=== PATIENT | male | born 1940 ===

== ENCOUNTER 2017-11-29 09:14 | Emergency (ER) | payer OTHER ==
[~2017-11-29] VITALS: Ht 170.2 cm; Wt 70.3 kg
[2017-11-29] MEDS ORDERED: ATORVASTATIN CA10 MG (09:24)
[2017-11-29] MEDS ORDERED: COZAAR50 MG (09:24)
[2017-11-29] MEDS ORDERED: SINGULAIR 5MG5 MG (09:24)
[2017-11-29] MEDS ORDERED: METFORMIN HCL500 MG (09:25)
[2017-11-29] MEDS ORDERED: FOLIC ACID0.4 MG (09:25)
[2017-11-29] MEDS ORDERED: PROSCAR5 MG (09:25)
[2017-11-29] MEDS ORDERED: BUSPIRONE HCL5 MG (09:26)
== END 2017-11-29 12:48 | disposition home or self-care (01) ==
LOC: ER 09:14
DX: R07.89 Other chest pain (principal); R42 Dizziness and giddiness